=== PATIENT | female | born 2000 | race Caucasian/White ===

== ENCOUNTER 2024-12-02 18:20 | Emergency (ER) | payer OTHER, SELFPAY ==
--- NOTE | ~2024-12-02 | XR_ITS ---
CLINICAL HISTORY: pain 3 view left shoulder Comparison: None Findings: No fractures or dislocations. No erosions. No radiopaque foreign body. IMPRESSION: 1. No acute findings This document has been electronically signed by: Lorin Galarza MD on 12/02/2024 19:14:08
--- NOTE | ~2024-12-02 | XR_ITS ---
CLINICAL HISTORY: pain 4 view left wrist Comparison: None Findings: No fractures or dislocations. No radiopaque foreign body. IMPRESSION: 1. No acute findings This document has been electronically signed by: Lorin aGlarza MD on 12/02/2024 19:13:42
[2024-12-02 18:27] VITALS: BP 114/58; PULSE 79; RESP 18; TEMP 37.2; O2SAT 100; BMI 20.6
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
[2024-12-02] MEDS: methocarbamoL 750 MG TABLET PO (19:54)
[2024-12-02 19:55] VITALS: BP 114/58; PULSE 79; RESP 18; TEMP 37.2; O2SAT 100
== END 2024-12-02 19:55 | disposition home or self-care (01) ==
PROVIDERS: Emergency Provider Emergency Medicine
DX: S69.92XA Unspecified injury of left wrist, hand and finger(s), initial encounter (principal); S13.4XXA Sprain of ligaments of cervical spine, initial encounter; M54.2 Cervicalgia; M25.512 Pain in left shoulder; M25.532 Pain in left wrist; R51.9 Headache, unspecified; V43.62XA Car passenger injured in collision with other type car in traffic accident, initial encounter; Y93.9 Activity, unspecified; Y92.410 Unspecified street and highway as the place of occurrence of the external cause; Y99.8 Other external cause status
CPT/HCPCS: 73030; 73110; 99282; 99283

== ENCOUNTER → 2024-12-02 18:30 | Outpatient (BNV) | payer SELFPAY | PROVIDERS: Emergency Provider Emergency Medicine; Visit Provider Radiology Diagnostic Radiology | DX: M25.512 Pain in left shoulder (principal); M25.532 Pain in left wrist | CPT/HCPCS: 73030; 73110 ==

== ENCOUNTER 2024-12-06 16:31 | Emergency (ER) | payer OTHER, SELFPAY ==
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
[2024-12-06 16:44] VITALS: BP 129/79; PULSE 83; RESP 16; TEMP 36.3; O2SAT 100; BMI 20.8
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
[2024-12-06 17:55] LABS: HCG Quantitative < 2 mIU/mL
[2024-12-06] MEDS: Ketorolac Tromethamine 30 MG/ML VIAL IM (19:57)
[2024-12-06 20:15] VITALS: BP 129/79; PULSE 83; RESP 16; TEMP 36.3; O2SAT 100
== END 2024-12-06 20:16 | disposition home or self-care (01) ==
PROVIDERS: Physician Assistant Medical; Emergency Provider Emergency Medicine
DX: S06.0X0A Concussion without loss of consciousness, initial encounter (principal); V43.62XA Car passenger injured in collision with other type car in traffic accident, initial encounter; W22.12XA Striking against or struck by front passenger side automobile airbag, initial encounter; Y93.89 Activity, other specified; Y92.410 Unspecified street and highway as the place of occurrence of the external cause; Y99.9 Unspecified external cause status
CPT/HCPCS: 36415; 70450; 84702; 96372; 99283; 99284; J1885

== ENCOUNTER → 2024-12-06 16:45 | Outpatient (BNV) | payer SELFPAY | PROVIDERS: Emergency Provider Emergency Medicine; Visit Provider Radiology Neuroradiology | DX: S09.90XA Unspecified injury of head, initial encounter (principal); V89.2XXA Person injured in unspecified motor-vehicle accident, traffic, initial encounter | CPT/HCPCS: 70450 ==